=== PATIENT | male | born 1930 | race Caucasian/White ===

== ENCOUNTER → 2017-04-16 | Outpatient (CLI) | payer BC | END | disposition home or self-care (01) | LOC: CT 11:27 | DX: M48.061 Spinal stenosis, lumbar region without neurogenic claudication (principal); M51.26 Other intervertebral disc displacement, lumbar region; M47.816 Spondylosis without myelopathy or radiculopathy, lumbar region; M43.16 Spondylolisthesis, lumbar region; R53.1 Weakness; G31.89 Other specified degenerative diseases of nervous system; J01.20 Acute ethmoidal sinusitis, unspecified | CPT/HCPCS: 70450; 72131 ==

== ENCOUNTER → 2017-04-23 | Outpatient (CLI) | payer BC ==
[~2017-04-23] MED LIST: IOHEXOL 180 MG/ML 10 ML VIAL.; methylPREDNISolone ACETATE 40 MG/ML VIAL.; methylPREDNISolone ACETATE 80 MG/ML VIAL.
== END | disposition home or self-care (01) ==
LOC: PNCL 12:28
DX: M51.16 Intervertebral disc disorders with radiculopathy, lumbar region (principal); M48.061 Spinal stenosis, lumbar region without neurogenic claudication; J44.9 Chronic obstructive pulmonary disease, unspecified; I10 Essential (primary) hypertension; E78.5 Hyperlipidemia, unspecified; E78.00 Pure hypercholesterolemia, unspecified; Z72.89 Other problems related to lifestyle; Z87.891 Personal history of nicotine dependence
CPT/HCPCS: 62323; J1030; J1040

== ENCOUNTER → 2017-05-07 | Outpatient (CLI) | payer BC | END | disposition home or self-care (01) | LOC: PNCL 10:16 | DX: M51.16 Intervertebral disc disorders with radiculopathy, lumbar region (principal); M48.061 Spinal stenosis, lumbar region without neurogenic claudication | CPT/HCPCS: G0463 ==

== ENCOUNTER → 2018-01-29 | Outpatient (CLI) | payer BC ==
[2014-12-19 11:13] VITALS: BP 116/89
[~2018-01-29] MED LIST changes: +ASPI325T11 PO; +ATOR40TA PO; +ATOR40TA59 PO; +CYAN10002 IM; +FAMO20TA5 PO; +Hydrocodone/Acetaminophen PO; -IOHEXOL 180 MG/ML 10 ML VIAL.; +Ibuprofen PO; +LISI-334 PO; +LISI-338 PO; +LISI10TA PO; +TAMS0.4C97 PO; -methylPREDNISolone ACETATE 40 MG/ML VIAL.; -methylPREDNISolone ACETATE 80 MG/ML VIAL.
--- NOTE | 2018-01-29 12:42 | KCIC ---
CT HEAD WO CONTRAST dated 01/29/2018 1:00 PM Indication: Pain after injury, fall 2 days ago, unsteady gait, double vision Comparison: 04/16/2017. Technique: Contiguous axial imaging the head was performed from skull base to vertex. No contrast administered. One or more of the following individualized dose reduction techniques were utilized for this examination: 1. Automated exposure control 2. Adjustment of the mA and/or kV according to patient size 3. Use of iterative reconstruction technique Findings: Ventricles and sulci are mildly prominent for age. No midline shift or mass effect. Mild patchy low density in the deep/subcortical periventricular white matter. No hemorrhage or extra-axial collection. Posterior fossa and brainstem unremarkable. Mild mucosal thickening of the posterior ethmoid air cells. Paranasal sinuses and mastoid air cells are otherwise clear. No apparent calvarial abnormality. There are abscess chronic indication of the parasellar carotid arteries and vertebral basilar system. IMPRESSION: 1. No evidence of acute intracranial hemorrhage or mass. 2. Mild chronic small vessel ischemic changes and atrophy. 3. Mild sinus disease. Electronically signed by: Ayo Laboy MD (01/29/2018 12:38 PM) [facility]
== END | disposition home or self-care (01) ==
LOC: KCIC CT 12:09
PROVIDERS: ATTEND Family Medicine
DX: S09.90XA Unspecified injury of head, initial encounter (principal); I65.29 Occlusion and stenosis of unspecified carotid artery; X58.XXXA Exposure to other specified factors, initial encounter; Y93.89 Activity, other specified; Y92.89 Other specified places as the place of occurrence of the external cause; Y99.8 Other external cause status
CPT/HCPCS: 70450

== ENCOUNTER → 2018-02-20 | Outpatient (CLI) | payer BC ==
[2014-12-19 11:13] VITALS: BP 116/89
[~2018-02-20] MED LIST changes: +IOHEXOL 180 MG/ML 10 ML VIAL. ONE; +LIDOCAINE 1% PF 2 ML VIAL. ONE; +methylPREDNISolone ACETATE 40 MG/ML VIAL. ONE; +methylPREDNISolone ACETATE 80 MG/ML VIAL. ONE
--- NOTE | 2018-02-20 20:28 | PAIN ---
DATE OF SERVICE: 02/20/2018 PROGRESS NOTE FOR PAIN CLINIC DIAGNOSES: Lumbar radiculopathy with lumbar degenerative disk disease and lumbar spinal stenosis. HISTORY OF PRESENT ILLNESS: The patient is an 88-year-old male who returns for followup status post lumbar epidural steroid injection x 1, last seen on 05/07/2017. The patient did very well with this and injection on April 23 with a 95% improvement. The patient reports the pain stayed away for a long time, almost 8 months and has been back over the past month or so. The patient reports pain in the low back and left lower extremity, posterior gluteus, posterior lateral thigh, lateral anterior thigh, anterior medial thigh, medial lower leg, worse with walking and standing. He has been stumbling because of the pain with his left leg as well and reports some swelling in the leg at times also. The patient reports no new motor or sensory deficits and no new bowel or bladder incontinence but significant pain in the back and leg as it was about 8 months ago. The patient reports it is stabbing and sharp, shooting, radiating, becoming more constant, more severe, worse with walking, standing, better with sitting or lying down, does not awaken him from sleep at night. The patient rates her pain as a 5 on a scale of 10 at its worst, 2 at its least and a 3 on average and is 3 today on a scale of 10. The patient reports no new changes and no other complaints. PHYSICAL EXAMINATION: VITAL SIGNS: The patient's blood pressure 144/85, pulse 76, respirations 18, temperature 97.9 degrees Fahrenheit and weight is 146 pounds. GENERAL: The patient is awake, alert, oriented, appropriate and very pleasant demeanor. HEENT: Head shows normocephalic and atraumatic. Extraocular movements intact and symmetrical. Oral cavity: Mucous membranes moist and pink. Dentition is intact. NECK: Shows anterior throat supple without palpable lymphadenopathy noted. Swallow reflex symmetrical. CHEST: Shows normal on inspection. Breath sounds clear to auscultation bilaterally. HEART: Shows S1 and S2 clear. No murmurs auscultated. ABDOMEN: Soft, nontender and nondistended. No palpable organomegaly is noted. No rebound or guarding demonstrated. BACK: Shows spine grossly in the midline. Normal appearing thoracic kyphosis and lumbar lordotic curvature. Lumbar paraspinous muscle shows symmetrical on inspection, on palpation shows a firm but mildly tender throughout the upper, middle and lower distribution of the paraspinous muscles bilaterally but is symmetrical and it shows no radiation of pain. The patient has good rotational motion both laterally as well as extension and flexion without significant difficulty. EXTREMITIES: The patient's shows lower extremities deep tendon reflexes are 1+ in the patellar and tendo-calcaneus tendons. Motor exam is strong with 5/5 dorsiflexion, extension, quadriceps and hamstring flexion and equal. Lower extremity peripheral pulses are 1+ posterior tibia. No peripheral edema is noted bilaterally. Options were discussed with the patient and the patient's daughter who accompanies him at his visit today. We will proceed with a lumbar epidural steroid injection. The patient did very well with this in the past. We will have the patient return in approximately 2 weeks following the injection. Risks were again discussed including, but not limited to bleeding, infection, possibility of epidural hematoma, subsequent neurologic compromise, dural puncture, headaches, spinal cord and/or nerve damage, side effects of steroid medication and poor results regarding pain control. The patient understands and wished to proceed. The patient will return to the clinic in approximately 2 weeks for followup, was counseled as to return appointment, activity level and side effects to be aware of. DIAGNOSES: Lumbar radiculopathy with lumbar degenerative disk disease and lumbar spinal stenosis. PROCEDURE: Lumbar epidural steroid injection, translaminar approach at L4-L5 level using C-arm fluoroscopic guidance under sterile prep and drape using local anesthetic. MEDICATION INJECTED: A total of 120 mg Depo-Medrol plus a total of 10 mL of preservative-free normal saline and 2 mL of Isovue for contrast. CONDITION AT DISCHARGE: Stable. The patient tolerated the procedure well and had no complications. RADHA ORDONEZ MD DR: ROME/greta JOB#: [id number] / [id number]
== END | disposition home or self-care (01) ==
LOC: PNCL 12:33
PROVIDERS: ATTEND Anesthesiology
DX: M51.16 Intervertebral disc disorders with radiculopathy, lumbar region (principal); M48.061 Spinal stenosis, lumbar region without neurogenic claudication
CPT/HCPCS: 62323; J1030; J1040; Q9965